=== PATIENT | male | born 1935 | race Caucasian/White ===

== ENCOUNTER → 2019-02-25 | Outpatient (CLI) | payer MEDICARE ==
--- NOTE | 2019-02-25 13:58 | CT ---
EXAMINATION TYPE: CT iac wo con DATE OF EXAM: 02/25/2019 COMPARISON: None HISTORY: Mastoiditis CT DLP: 150.00mGycm Automated exposure control for dose reduction was used. FINDINGS: There is abnormal soft tissue along the external auditory canal on the left, there is some associated calcification present, auditory ossicles show an asymmetric configuration. There is erosio n of the scutum on the left, some widening of the external auditory canal suspected. There is abnorma l thickening of the tympanic membrane. Some inflammatory change present in the mastoid air cells on t he left. . On the right there is extensive inflammatory change involving the mastoid air cells. No thickening of the tympanic membrane or erosion of the scutum. Ostiomeatal units are patent. Several mandibular joints show arthropathy change. There are dense athe rosclerotic calcifications of the internal carotid arteries. There is a deviated nasal septum. Small tessy bullosa present on the right. Maxillary sinus is well aerated as is the sphenoid and ethmoid a ir cells. IMPRESSION: Findings may represent cholesteatoma or postop change on the left as described. Mastoidit is.
== END | disposition home or self-care (01) ==
LOC: RADCTMAIN 10:52
PROVIDERS: ATTEND Otolaryngology
DX: H70.92 Unspecified mastoiditis, left ear (principal); Z86.69 Personal history of other diseases of the nervous system and sense organs
CPT/HCPCS: 70480